=== PATIENT | female | born 1945 | race Caucasian/White ===

== ENCOUNTER 2017-09-17 15:06 | Observation (INO) | payer OTHER ==
[~2017-09-17] VITALS: Ht 167.6 cm; Wt 60.0 kg
[~2017-09-17 15:06] MED LIST: TAB-TAB PO
[2017-09-17 15:16] VITALS: BP 141/81; PULSE 102; RESP 18; TEMP 98; O2SAT 98
[2017-09-17] MEDS ORDERED: SODIUM CHLOR 0.9% 1000 ML INJ 1,000 ML IV SCH (15:35)
[2017-09-17] MEDS ORDERED: MORPHINE SULFATE 4 MG/ML INJ IV PUSH ONE (15:45)
[2017-09-17] MEDS ORDERED: SODIUM CHLORIDE 0.9% FLUSH 10 ML FLUSH IV FLUSH PRN ×2 (15:45→20:15)
--- NOTE | 2017-09-17 15:46 | PD ---
HPI Chief Complaint: Hip Injury Time Seen by Provider: 15:24 Travel History International Travel<30 days: No Contact w/Intl Traveler<30days: No Traveled to known affect area: No History of Present Illness HPI Patient is a well-appearing 72-year-old female presents to the emergency room complaints of b/l hip pain. Patient reports that she is healthy and has no medical problems and does not take any anticoagulants,. Reports that she was drinking heavily with her neighbors last night and fell backwards onto concrete landing onto her buttocks and left hip. Patient denies any trauma to the head or neck, patient denies any loss of consciousness. Reports that her neighbors and her helped her into the house, patient reports that she has not been able to get out of bed since last night. Patient reports that she has not been able to ambulate due to bilateral hip pain. Denies headache or dizziness, denies any neck pain, denies any chest pain, denies any abdominal pain. PFSH Past Medical History Cancer: No Cardiovascular Problems: No Chemotherapy: No Diabetes: No Endocrine: No Gastrointestinal Disorders: No Genitourinary: Yes (BLADDER PROLAPSE) Hepatitis: No Hiatal Hernia: No Hypertension: No Immune Disorder: No Implanted Vascular Access Dvce: No Medical other: No Musculoskeletal: No Neurologic: No Psychiatric: No Reproductive: Yes (D.N.C's) Respiratory: No Radiation Therapy: No Thyroid Disease: No Past Surgical History Abdominal Surgery: No AICD: No Body Medical Devices: BREAST AUGMENTATION Cardiac Surgery: No Ear Surgery: No Endocrine Surgery: No Eye Surgery: No Genitourinary Surgery: No Gynecologic Surgery: Yes (D.N.C'S) Joint Replacement: No Neurologic Surgery: No Oral Surgery: No Pacemaker: No Thoracic Surgery: No Other Surgery: Yes (D.N.C's) Social History Alcohol Use: No Tobacco Use: No Substance Use: No Allergies-Medications (Allergen,Severity, Reaction): Coded Allergies: No Known Allergies (Unverified , 06/19/12) Reported Meds & Prescriptions Reported Meds & Active Scripts Active Reported Multivitamin (Multivitamins) 1 Tab Tab 1 Tab PO DAILY Review of Systems General / Constitutional: No: Fever Eyes: No: Visual changes HENT: No: Headaches Cardiovascular: No: Chest Pain or Discomfort Respiratory: No: Shortness of Breath Gastrointestinal: No: Abdominal Pain Genitourinary: No: Dysuria Musculoskeletal: Positive: Pain (b/l hip pain) Skin: No Rash Neurologic: No: Weakness Psychiatric: No: Depression Endocrine: No: Polydipsia Hematologic/Lymphatic: No: Easy Bruising Physical Exam Narrative GENERAL: moderate distress SKIN: Focused skin assessment warm/dry. HEAD: Atraumatic. Normocephalic. EYES: Pupils equal and round. No scleral icterus. No injection or drainage. ENT: No nasal bleeding or discharge. Mucous membranes pink and moist. NECK: Trachea midline. No JVD. CARDIOVASCULAR: Regular rate and rhythm. No murmur appreciated. RESPIRATORY: No accessory muscle use. Clear to auscultation. Breath sounds equal bilaterally. GASTROINTESTINAL: Abdomen soft, non-tender, nondistended. Hepatic and splenic margins not palpable. MUSCULOSKELETAL: Patient with pain with range of motion to the left hip as well as right hip, on her left hip, she does have a bruise to her left lateral thigh , patient with no midline cervical, thoracic or lumbar tenderness, she does have been a bruise to her left elbow -she does have good range of motion to her elbow, normal range of motion to left shoulder and left wrist as well as right upper extremity NEUROLOGICAL: Awake and alert. No obvious cranial nerve deficits. Motor grossly within normal limits. Normal speech. PSYCHIATRIC: Appropriate mood and affect; insight and judgment normal. Data Data Last Documented VS Vital Signs Date Time Temp Pulse Resp B/P (MAP) Pulse Ox O2 Delivery O2 Flow Rate FiO2 09/17/17 16:41 97 18 200/94 (129) 97 09/17/17 15:47 Room Air 09/17/17 15:16 98.0 Orders Orders Hip, Uni(Ap&Lat) W Ap Pelvis (09/17/17 ) Hip, Uni(Ap&Lat) Wo Ap Pelvis (09/17/17 ) Basic Metabolic Panel (Bmp) (09/17/17 15:35) Complete Blood Count With Diff (09/17/17 15:35) Prothrombin Time / Inr (Pt) (09/17/17 15:35) Act Partial Throm Time (Ptt) (09/17/17 15:35) Iv Access Insert/Monitor (09/17/17 15:35) Ecg Monitoring (09/17/17 15:35) Oximetry (09/17/17 15:35) Morphine Inj (Morphine Inj) (09/17/17 15:45) Sodium Chlor 0.9% 1000 Ml Inj (Ns 1000 M (09/17/17 15:35) Sodium Chloride 0.9% Flush (Ns Flush) (09/17/17 15:45) Elbow, Complete (4 Vws) (09/17/17 ) Labs Laboratory Tests Test 09/17/17 15:45 White Blood Count 10.4 TH/MM3 Red Blood Count 4.41 MIL/MM3 Hemoglobin 14.5 GM/DL Hematocrit 43.2 % Mean Corpuscular Volume 97.9 FL Mean Corpuscular Hemoglobin 32.9 PG Mean Corpuscular Hemoglobin Concent 33.6 % Red Cell Distribution Width 13.5 % Platelet Count 328 TH/MM3 Mean Platelet Volume 8.3 FL Neutrophils (%) (Auto) 74.3 % Lymphocytes (%) (Auto) 10.8 % Monocytes (%) (Auto) 14.4 % Eosinophils (%) (Auto) 0.1 % Basophils (%) (Auto) 0.4 % Neutrophils # (Auto) 7.7 TH/MM3 Lymphocytes # (Auto) 1.1 TH/MM3 Monocytes # (Auto) 1.5 TH/MM3 Eosinophils # (Auto) 0.0 TH/MM3 Basophils # (Auto) 0.0 TH/MM3 CBC Comment DIFF FINAL Differential Comment Prothrombin Time 10.6 SEC Prothromb Time International Ratio 1.0 RATIO Activated Partial Thromboplast Time 25.4 SEC Blood Urea Nitrogen 8 MG/DL Creatinine 0.52 MG/DL Random Glucose 108 MG/DL Calcium Level 9.3 MG/DL Sodium Level 140 MEQ/L Potassium Level 3.6 MEQ/L Chloride Level 105 MEQ/L Carbon Dioxide Level 22.2 MEQ/L Anion Gap 13 MEQ/L Estimat Glomerular Filtration Rate 117 ML/MIN MDM Medical Decision Making Medical Screen Exam Complete: Yes Emergency Medical Condition: Yes Medical Record Reviewed: Yes Interpretation(s) Vital Signs Date Time Temp Pulse Resp B/P (MAP) Pulse Ox O2 Delivery O2 Flow Rate FiO2 09/17/17 15:16 98.0 102 18 141/81 (101) 98 Differential Diagnosis Pelvic fracture, hip fractures Narrative Course During the course of the patients emergency department visit, the patients history, examination, and differential diagnosis were reviewed with the patient. The patient was placed on a electronic device monitor with oximetry and frequent blood pressure monitoring. The patient had an IV access obtained and blood work sent for analysis. The patient was initially provided IV morphine and IVF The patients laboratory studies were reviewed and remarkable for Laboratory Tests Test 09/17/17 15:45 White Blood Count 10.4 TH/MM3 (4.0-11.0) Red Blood Count 4.41 MIL/MM3 (4.00-5.30) Hemoglobin 14.5 GM/DL (11.6-15.3) Hematocrit 43.2 % (35.0-46.0) Mean Corpuscular Volume 97.9 FL (80.0-100.0) Mean Corpuscular Hemoglobin 32.9 PG (27.0-34.0) Mean Corpuscular Hemoglobin Concent 33.6 % (32.0-36.0) Red Cell Distribution Width 13.5 % (11.6-17.2) Platelet Count 328 TH/MM3 (150-450) Mean Platelet Volume 8.3 FL (7.0-11.0) Neutrophils (%) (Auto) 74.3 % (16.0-70.0) Lymphocytes (%) (Auto) 10.8 % (9.0-44.0) Monocytes (%) (Auto) 14.4 % (0.0-8.0) Eosinophils (%) (Auto) 0.1 % (0.0-4.0) Basophils (%) (Auto) 0.4 % (0.0-2.0) Neutrophils # (Auto) 7.7 TH/MM3 (1.8-7.7) Lymphocytes # (Auto) 1.1 TH/MM3 (1.0-4.8) Monocytes # (Auto) 1.5 TH/MM3 (0-0.9) Eosinophils # (Auto) 0.0 TH/MM3 (0-0.4) Basophils # (Auto) 0.0 TH/MM3 (0-0.2) CBC Comment DIFF FINAL Differential Comment Prothrombin Time 10.6 SEC (9.8-11.6) Prothromb Time International Ratio 1.0 RATIO Activated Partial Thromboplast Time 25.4 SEC (24.3-30.1) Blood Urea Nitrogen 8 MG/DL (7-18) Creatinine 0.52 MG/DL (0.50-1.00) Random Glucose 108 MG/DL (74-106) Calcium Level 9.3 MG/DL (8.5-10.1) Sodium Level 140 MEQ/L (136-145) Potassium Level 3.6 MEQ/L (3.5-5.1) Chloride Level 105 MEQ/L (98-107) Carbon Dioxide Level 22.2 MEQ/L (21.0-32.0) Anion Gap 13 MEQ/L (5-15) Estimat Glomerular Filtration Rate 117 ML/MIN (>89) Radiology studies were reviewed and remarkable: pending xrays signed out to care of Dr. Wheeler at change of shift Minnie Baltazar DO Sep 17, 2017 15:46
[2017-09-17 15:47] VITALS: BP 177/87; PULSE 95; RESP 20; O2SAT 99
[2017-09-17 16:11] LABS: AUTOMATED NEUTROPHIL # 7.7 TH/MM3 (1.8-7.7); BASOPHIL % 0.4 % (0.0-2.0); EOSINOPHIL % 0.1 % (0.0-4.0); HEMATOCRIT 43.2 % (35.0-46.0); HEMOGLOBIN 14.5 GM/DL (11.6-15.3); LYMPH % 10.8 % (9.0-44.0); LYMPHOCYTE # 1.1 TH/MM3 (1.0-4.8); MEAN CELL VOLUME 97.9 FL (80.0-100.0); MEAN CORPUSCULAR HEMOGLOBIN 32.9 PG (27.0-34.0); MEAN CORPUSCULAR HGB CONC 33.6 % (32.0-36.0); MEAN PLATELET VOLUME 8.3 FL (7.0-11.0); MONO % 14.4 % (0.0-8.0); MONOCYTE # 1.5 TH/MM3 (0-0.9); NEUT % 74.3 % (16.0-70.0); PLATELET COUNT 328 TH/MM3 (150-450); RED BLOOD COUNT 4.41 MIL/MM3 (4.00-5.30); RED CELL DISTRIBUTION WIDTH 13.5 % (11.6-17.2); WHITE BLOOD COUNT 10.4 TH/MM3 (4.0-11.0)
[2017-09-17 16:22] LABS: BICARBONATE 22.2 MEQ/L (21.0-32.0); CALCIUM 9.3 MG/DL (8.5-10.1); CREATININE 0.52 MG/DL (0.50-1.00)
[2017-09-17 16:30] LABS: PROTHROMBIN TIME - PATIENT 10.6 SEC (9.8-11.6)
[2017-09-17 16:41] VITALS: BP 200/94; PULSE 97; RESP 18; O2SAT 97
--- NOTE | 2017-09-17 17:15 | PD ---
Physical Exam Narrative Received sign out to follow up with xrays. Please see previous team's note for further details. 72yo F here with c/o left hip pain s/p fall after drinking last night. Denies any head trauma or LOC. Pt has abrasion in left elbow but denies pain there. Said her has to help her up and she is unable to ambulate. Denies any focal weakness or numbness but unable to lift her legs on exam. +TTP left proximal femur. There is small ecchymoses in left femur. Distal pulses intact. Sensation intact. Labs reviewed, no leukocytosis. H/H normal. BMP unremarkable. Pt given morphine 4mg. Said it does not hurt if she does not move. Xray left elbow negative. Xray right hip showed fracture of medial right pubic bone. Xray left hip showed fracture of left superior and inferior pubic rami. Pt is unable to ambulate so will admit for observation for PT evaluation. Discussed with Dr. Myers and accepted to his service. Data Data Last Documented VS Vital Signs Date Time Temp Pulse Resp B/P (MAP) Pulse Ox O2 Delivery O2 Flow Rate FiO2 09/17/17 16:41 97 18 200/94 (129) 97 09/17/17 15:47 Room Air 09/17/17 15:16 98.0 Orders Orders Hip, Uni(Ap&Lat) W Ap Pelvis (09/17/17 ) Hip, Uni(Ap&Lat) Wo Ap Pelvis (09/17/17 ) Basic Metabolic Panel (Bmp) (09/17/17 15:35) Complete Blood Count With Diff (09/17/17 15:35) Prothrombin Time / Inr (Pt) (09/17/17 15:35) Act Partial Throm Time (Ptt) (09/17/17 15:35) Iv Access Insert/Monitor (09/17/17 15:35) Ecg Monitoring (09/17/17 15:35) Oximetry (09/17/17 15:35) Morphine Inj (Morphine Inj) (09/17/17 15:45) Sodium Chlor 0.9% 1000 Ml Inj (Ns 1000 M (09/17/17 15:35) Sodium Chloride 0.9% Flush (Ns Flush) (09/17/17 15:45) Elbow, Complete (4 Vws) (09/17/17 ) Admit Order (Ed Use Only) (09/17/17 18:24) Labs Laboratory Tests Test 09/17/17 15:45 White Blood Count 10.4 TH/MM3 Red Blood Count 4.41 MIL/MM3 Hemoglobin 14.5 GM/DL Hematocrit 43.2 % Mean Corpuscular Volume 97.9 FL Mean Corpuscular Hemoglobin 32.9 PG Mean Corpuscular Hemoglobin Concent 33.6 % Red Cell Distribution Width 13.5 % Platelet Count 328 TH/MM3 Mean Platelet Volume 8.3 FL Neutrophils (%) (Auto) 74.3 % Lymphocytes (%) (Auto) 10.8 % Monocytes (%) (Auto) 14.4 % Eosinophils (%) (Auto) 0.1 % Basophils (%) (Auto) 0.4 % Neutrophils # (Auto) 7.7 TH/MM3 Lymphocytes # (Auto) 1.1 TH/MM3 Monocytes # (Auto) 1.5 TH/MM3 Eosinophils # (Auto) 0.0 TH/MM3 Basophils # (Auto) 0.0 TH/MM3 CBC Comment DIFF FINAL Differential Comment Prothrombin Time 10.6 SEC Prothromb Time International Ratio 1.0 RATIO Activated Partial Thromboplast Time 25.4 SEC Blood Urea Nitrogen 8 MG/DL Creatinine 0.52 MG/DL Random Glucose 108 MG/DL Calcium Level 9.3 MG/DL Sodium Level 140 MEQ/L Potassium Level 3.6 MEQ/L Chloride Level 105 MEQ/L Carbon Dioxide Level 22.2 MEQ/L Anion Gap 13 MEQ/L Estimat Glomerular Filtration Rate 117 ML/MIN MDM Supervised Visit with SCHUYLER: No Diagnosis Primary Impression: Pelvic fracture Qualified Codes: S32.810A - Multiple fractures of pelvis with stable disruption of pelvic ring, initial encounter for closed fracture Admitting Information Admitting Physician Requests: Observation Skyla Wheeler DO Sep 17, 2017 17:15
--- NOTE | 2017-09-17 17:24 | RADRPT ---
EXAM DATE: 09/17/2017 5:20 PM EDT AGE/SEX: 72 years / Female INDICATIONS: Fracture. CLINICAL DATA: This is the patient's initial encounter. Patient reports that signs and symptoms have been present for 1 day and indicates a pain score of 9/10. MEDICAL/SURGICAL HISTORY: None. None. COMPARISON: No prior exams available for comparison. FINDINGS: There is fracturing of the superior lateral left pubic rami and the mid inferior left pubic rami. The re is also fracturing of the right medial pubic bone superiorly. The hip joints are normally aligned. The proximal femurs appear intact. The sacroiliac joints are intact. CONCLUSION: Fracturing of the left superior and inferior pubic rami. There is also fracture in the medial right p ubic bone. Electronically signed by: Ramirez Polanco MD 09/17/2017 5:23 PM EDT
--- NOTE | 2017-09-17 17:37 | RADRPT ---
EXAM DATE: 09/17/2017 5:18 PM EDT AGE/SEX: 72 years / Female INDICATIONS: Fracture. CLINICAL DATA: This is the patient's initial encounter. Patient reports that signs and symptoms have been present for 1 day and indicates a pain score of 0/10. MEDICAL/SURGICAL HISTORY: None. None. COMPARISON: No prior exams available for comparison. FINDINGS: Bony structures are intact and in normal alignment. Joints are intact without dislocation or signifi cant arthropathy. Osseous density is normal. Soft tissues are unremarkable. No radiopaque foreign bodies seen. CONCLUSION: Negative left elbow series. Electronically signed by: Ramirez Polanco MD 09/17/2017 5:35 PM EDT
--- NOTE | 2017-09-17 17:42 | RADRPT ---
EXAM DATE: 09/17/2017 5:21 PM EDT AGE/SEX: 72 years / Female INDICATIONS: Fracture. CLINICAL DATA: This is the patient's initial encounter. Patient reports that signs and symptoms have been present for 1 day and indicates a pain score of 8/10. MEDICAL/SURGICAL HISTORY: None. None. COMPARISON: [facility] – [place], HIP LEFT (AP&LAT 2/3VWS) W AP PELVIS, 09/17/2017. . FINDINGS: There appears to be fracturing through the superior aspect of the medial right pubic bone. The pubic rami appear intact. The right hip joint is aligned. CONCLUSION: Fracturing of the medial right pubic bone. Electronically signed by: Ramirez Polanco MD 09/17/2017 5:41 PM EDT
[2017-09-17 18:29] VITALS: BP 155/89; PULSE 95; RESP 21; O2SAT 94
[2017-09-17] MEDS ORDERED: ACETAMINOPHEN 325 MG TAB PO PRN (20:15)
[2017-09-17] MEDS ORDERED: MORPHINE SULFATE 4 MG/ML INJ IV PUSH PRN (20:15)
[2017-09-17] MEDS ORDERED: NALOXONE HCL 0.4 MG/ML AMP IV PUSH PRN (20:15)
[2017-09-17] MEDS ORDERED: LORazepam 1 MG TAB PO PRN (21:15)
[2017-09-17] MEDS ORDERED: FLUMAZENIL 0.5 MG/5 ML VIAL IV PUSH PRN (21:15)
[2017-09-17] MEDS ORDERED: LORazepam 2 MG TAB PO PRN (21:15)
[2017-09-17] MEDS ORDERED: LORazepam 2 MG/ML VIAL IV PUSH PRN ×4 (21:15)
--- NOTE | 2017-09-17 21:19 | HHI.HP ---
[facility] Service [facility] Primary Care Physician Abdullahi Telles MD Admission Diagnosis Pelvic fracture Diagnoses: Travel History International Travel<30 Days: No Contact w/Intl Traveler <30 Da: No Traveled to Known Affected Are: No History of Present Illness 72-year-old female reports that she was "partying with neighbors" last night when she fell backwards onto a concrete driveway onto her buttock and back. She denies any head trauma or loss of consciousness. Denies any other injuries. She reports she is unable to ambulate secondary to pelvic pain. The patient drinks approximately 10 shots of alcohol daily. She denies any chest pain or shortness of breath. No abdominal pain. No nausea/vomiting/diarrhea. No lateralizing signs/symptoms. No fever/chills Review of Systems Except as stated in HPI: all other systems reviewed are Neg Past Family Social History Past Medical History None Past Surgical History Bladder prolapse D&C Tonsillectomy Reported Medications Reported Meds & Active Scripts Active Reported Multivitamin (Multivitamins) 1 Tab Tab 1 Tab PO DAILY Allergies: Coded Allergies: No Known Allergies (Unverified , 06/19/12) Family History Negative for CAD/DM Social History Negative for tobacco and illicit drugs. Reports drinking approximately 10 shots of alcohol daily Physical Exam Vital Signs Vital Signs Date Time Temp Pulse Resp B/P (MAP) Pulse Ox O2 Delivery O2 Flow Rate FiO2 09/17/17 20:31 09/17/17 18:29 95 21 155/89 (111) 94 09/17/17 16:41 97 18 200/94 (129) 97 09/17/17 15:47 95 20 177/87 (117) 99 Room Air 09/17/17 15:16 98.0 102 18 141/81 (101) 98 Physical Exam GENERAL: female lying in bed SKIN: No rashes, ecchymoses or lesions. Cool and dry. HEAD: Atraumatic. Normocephalic. No temporal or scalp tenderness. EYES: Pupils equal round and reactive. Extraocular motions intact. No scleral icterus. No injection or drainage. ENT: Nose without bleeding, purulent drainage or septal hematoma. Throat without erythema, tonsillar hypertrophy or exudate. Uvula midline. Airway patent. NECK: Trachea midline. No JVD or lymphadenopathy. Supple, nontender, no meningeal signs. CARDIOVASCULAR: Regular rate and rhythm without murmurs, gallops, or rubs. RESPIRATORY: Clear to auscultation. Breath sounds equal bilaterally. No wheezes , rales, or rhonchi. GASTROINTESTINAL: Abdomen soft, non-tender, nondistended. No hepato-splenomegaly , or palpable masses. No guarding. MUSCULOSKELETAL: Bilateral lower extremities neurovascularly intact. NEUROLOGICAL: Awake and alert. Cranial nerves II through XII intact. Motor and sensory grossly within normal limits. Normal speech. Laboratory Laboratory Tests Test 09/17/17 15:45 White Blood Count 10.4 Red Blood Count 4.41 Hemoglobin 14.5 Hematocrit 43.2 Mean Corpuscular Volume 97.9 Mean Corpuscular Hemoglobin 32.9 Mean Corpuscular Hemoglobin Concent 33.6 Red Cell Distribution Width 13.5 Platelet Count 328 Mean Platelet Volume 8.3 Neutrophils (%) (Auto) 74.3 Lymphocytes (%) (Auto) 10.8 Monocytes (%) (Auto) 14.4 Eosinophils (%) (Auto) 0.1 Basophils (%) (Auto) 0.4 Neutrophils # (Auto) 7.7 Lymphocytes # (Auto) 1.1 Monocytes # (Auto) 1.5 Eosinophils # (Auto) 0.0 Basophils # (Auto) 0.0 CBC Comment DIFF FINAL Differential Comment Prothrombin Time 10.6 Prothromb Time International Ratio 1.0 Activated Partial Thromboplast Time 25.4 Blood Urea Nitrogen 8 Creatinine 0.52 Random Glucose 108 Calcium Level 9.3 Sodium Level 140 Potassium Level 3.6 Chloride Level 105 Carbon Dioxide Level 22.2 Anion Gap 13 Estimat Glomerular Filtration Rate 117 Result Diagram: 09/17/17 1545 09/17/17 1545 Caprini VTE Risk Assessment Caprini VTE Risk Assessment: Mod/High Risk (score >= 2) Caprini Risk Assessment Model Point Value = 1 Point Value = 2 Point Value = 3 Point Value = 5 Age 41-60 Minor surgery BMI > 25 kg/m2 Swollen legs Varicose veins or History of unexplained or recurrent spontaneous Oral contraceptives or hormone replacement Sepsis (< 1 month) Serious lung disease, including pneumonia (< 1 month) Abnormal pulmonary function Acute myocardial infarction Congestive heart failure (< 1 month) History of inflammatory bowel disease Medical patient at bed rest Age 61-74 Arthroscopic surgery Major open surgery (> 45 min) Laparoscopic surgery (> 45 min) Malignancy Confined to bed (> 72 hours) Immobilizing plaster cast Central venous access Age >= 75 History of VTE Family history of VTE Factor V Leiden Prothrombin [id number] Lupus anticoagulant Anticardiolipin antibodies Elevated serum homocysteine Heparin-induced thrombocytopenia Other congenital or acquired thrombophilia Stroke (< 1 month) Elective arthroplasty Hip, pelvis, or leg fracture Acute spinal cord injury (< 1 month) Prophylaxis Regimen Total Risk Factor Score Risk Level Prophylaxis Regimen 0-1 Low Early ambulation 2 Moderate Order ONE of the following: *Sequential Compression Device (SCD) *Heparin 5000 units SQ BID 3-4 Higher Order ONE of the following medications: *Heparin 5000 units SQ TID *Enoxaparin/Lovenox 40 mg SQ daily (WT < 150 kg, CrCl > 30 mL/min) *Enoxaparin/Lovenox 30 mg SQ daily (WT < 150 kg, CrCl > 10-29 mL/min) *Enoxaparin/Lovenox 30 mg SQ BID (WT < 150 kg, CrCl > 30 mL/min) AND/OR *Sequential Compression Device (SCD) 5 or more Highest Order ONE of the following medications: *Heparin 5000 units SQ TID (Preferred with Epidurals) *Enoxaparin/Lovenox 40 mg SQ daily (WT < 150 kg, CrCl > 30 mL/min) *Enoxaparin/Lovenox 30 mg SQ daily (WT < 150 kg, CrCl > 10-29 mL/min) *Enoxaparin/Lovenox 30 mg SQ BID (WT < 150 kg, CrCl > 30 mL/min) AND *Sequential Compression Device (SCD) Assessment and Plan Assessment and Plan Assessment/plan: 1. Rami/pubic bone fracture Hip and pelvis x-ray significant for fracturing of the left superior and inferior pubic rami and fracture in the medial right pubic bone Patient reports her pain is uncontrolled and she is unable to ambulate Orthopedic surgery consulted, appreciate recommendations Physical therapy consulted Morphine for pain 2. Alcohol abuse Thiamine/folate/multivitamin CITX protocol Monitor for signs of withdrawal FEN Heart healthy diet Electrolytes: Monitor and replete as needed Heparin Minnie Rasheed MD Sep 17, 2017:19
[2017-09-17 21:30] VITALS: BP 146/81; PULSE 94; RESP 16; TEMP 98.9; O2SAT 97
[2017-09-17] MEDS: SODIUM CHLORIDE 0.9% FLUSH 10 ML FLUSH IV FLUSH SCH (22:13)
[2017-09-17 23:40] VITALS: BP 132/76; PULSE 93; RESP 16; TEMP 98.9; O2SAT 94
[2017-09-18 03:45] VITALS: BP 135/69; PULSE 91; RESP 16; TEMP 98.3; O2SAT 95
[2017-09-18 05:52] LABS: BASOPHIL % 0.4 % (0.0-2.0); EOSINOPHIL # 0.1 TH/MM3 (0-0.4); EOSINOPHIL % 0.7 % (0.0-4.0); HEMATOCRIT 40.8 % (35.0-46.0); HEMOGLOBIN 13.7 GM/DL (11.6-15.3); LYMPHOCYTE # 1.1 TH/MM3 (1.0-4.8); MEAN CELL VOLUME 96.7 FL (80.0-100.0); MEAN CORPUSCULAR HEMOGLOBIN 32.3 PG (27.0-34.0); MEAN CORPUSCULAR HGB CONC 33.4 % (32.0-36.0); MEAN PLATELET VOLUME 8.4 FL (7.0-11.0); MONOCYTE # 1.7 TH/MM3 (0-0.9); NEUT % 75.9 % (16.0-70.0); PLATELET COUNT 325 TH/MM3 (150-450); RED BLOOD COUNT 4.22 MIL/MM3 (4.00-5.30); RED CELL DISTRIBUTION WIDTH 13.7 % (11.6-17.2); WHITE BLOOD COUNT 11.8 TH/MM3 (4.0-11.0)
[2017-09-18 06:15] LABS: BICARBONATE 23.4 MEQ/L (21.0-32.0); CALCIUM 8.6 MG/DL (8.5-10.1); CREATININE 0.45 MG/DL (0.50-1.00)
[2017-09-18 08:00] VITALS: BP 141/79; PULSE 88; RESP 16; TEMP 98.3; O2SAT 95
[2017-09-18] MEDS: THIAMINE HCL 100 MG TAB PO SCH (09:52)
[2017-09-18] MEDS: FOLIC ACID 1 MG TAB PO SCH (09:52)
[2017-09-18] MEDS: MULTIVITAMINS/MINERALS THERAPEUTIC TAB PO SCH (09:52)
[2017-09-18] MEDS: SODIUM CHLORIDE 0.9% FLUSH 10 ML FLUSH IV FLUSH SCH ×2 (09:52→20:15)
[2017-09-18] MEDS: HEPARIN SODIUM - SQ 10,000 UNITS/ML VIAL SQ SCH ×2 (09:52→20:15)
[2017-09-18] MEDS: ACETAMINOPHEN/HYDROcodone 325 MG/5 MG TAB PO PRN ×2 (12:07→18:02)
--- NOTE | 2017-09-18 12:34 | HHI.PR ---
Subjective Remarks Patient herself says she still in pain, hurts a lot when she goes from the bed to the wheelchair. Denies having any palpitations or chest pain surrounding the incident that precipitated her presentation. Objective Vital Signs Date Time Temp Pulse Resp B/P (MAP) Pulse Ox O2 Delivery O2 Flow Rate FiO2 09/18/17 08:00 98.3 88 16 141/79 (99) 95 09/18/17 03:45 98.3 91 16 135/69 (91) 95 09/17/17 23:40 98.9 93 16 132/76 (94) 94 09/17/17 23:00 18 09/17/17 21:30 98.9 94 16 146/81 (102) 97 09/17/17 20:31 09/17/17 18:29 95 21 155/89 (111) 94 09/17/17 16:41 97 18 200/94 (129) 97 09/17/17 15:47 95 20 177/87 (117) 99 Room Air 09/17/17 15:16 98.0 102 18 141/81 (101) 98 I/O 09/17/17 09/17/17 09/17/17 09/18/17 09/18/17 09/18/17 07:00 15:00 23:00 07:00 15:00 23:00 Intake Total 1000 ml Output Total 150 ml Balance -150 ml 1000 ml Intake IV Total 1000 ml Output Urine Total 150 ml # Voids 2 Result Diagram: 09/18/17 0453 09/18/17 0453 Objective Remarks Is able to abduct both of her hips on her own but only does so with partial range of motion secondary to pain Lying in bed, awake and alert, no acute distress A/P Assessment and Plan Right-sided superior and inferior pubic rami fractures as well as left medial pubic bone fracture-nonoperative from what I gather. Patient will need pain medication only to be discharged to rehab. Derek Moran MD Sep 18, 2017 12:34
[2017-09-18 13:00] VITALS: BP 126/77; PULSE 99; RESP 16; TEMP 97.6; O2SAT 93
--- NOTE | 2017-09-18 14:13 | HHI.DCPOC ---
Discharge Care Plan Diagnosis: (1) Fracture of multiple pubic rami (2) Pelvic fracture Goals to Promote Your Health * To prevent worsening of your condition and complications * To maintain your health at the optimal level Directions to Meet Your Goals Take your medications as prescribed Follow your dietary instruction Follow activity as directed Keep your appointments as scheduled Take your immunizations and boosters as scheduled If your symptoms worsen call your PCP, if no PCP go to Urgent Care Center or Emergency Room Smoking is Dangerous to Your Health. Avoid second hand smoke Call the 24-hour hour crisis hotline for domestic abuse at Derek Moran MD Sep 18, 2017 14:13
[2017-09-18] MEDS ORDERED: HYDR-3516 PO (14:14)
--- NOTE | 2017-09-18 14:15 | PD.CONS ---
HPI Service Orthopedic Surgeons Consult Requested By Dr. Rasheed Reason for Consult Fracture of the pelvis Primary Care Physician Abdullahi Telles MD Admission Diagnosis Pelvic fracture Diagnoses: Chief Complaint: Pelvic pain and inability to ambulate History of Present Illness This patient is a 72-year-old female who fell yesterday on concrete in her front yard. She had been drinking. There was no loss of consciousness. The patient was unable to ambulate. She is brought by [facility] to [facility] and was found to have evidence of a pelvis fracture. I have been asked to see her in consultation regarding the same Review of Systems Constitutional: DENIES: Diaphoretic episodes, Fatigue, Fever, Weight gain, Weight loss, Chills, Dizziness, Change in appetite, Night Sweats Endocrine: DENIES: Abnorml menstrual pattern, Heat/cold intolerance, Polydipsia , Polyuria, Polyphagia Eyes: DENIES: Blurred vision, Diplopia, Eye inflammation, Eye pain, Vision loss , Photosensitivity, Double Vision Ears, nose, mouth, throat: DENIES: Tinnitus, Hearing loss, Vertigo, Nasal discharge, Oral lesions, Throat pain, Hoarseness, Ear Pain, Running Nose, Epistaxis, Sinus Pain, Toothache, Odynophagia Respiratory: DENIES: Apneas, Cough, Snoring, Wheezing, Hemoptysis, Sputum production, Shortness of breath Cardiovascular: DENIES: Chest pain, Palpitations, Syncope, Dyspnea on Exertion , PND, Lower Extremity Edema, Orthopnea, Claudication Gastrointestinal: DENIES: Abdominal pain, Black stools, Bloody stools, Constipation, Diarrhea, Nausea, Vomiting, Difficulty Swallowing, Anorexia Genitourinary: DENIES: Abnormal vaginal bleeding, Dysmenorrhea, Dyspareunia, Sexual dysfunction, Urinary frequency, Urinary incontinence, Urgency, Hematuria , Dysuria, Nocturia, Vaginal discharge Musculoskeletal: COMPLAINS OF: Joint pain, Stiffness Integumentary: DENIES: Abnormal pigmentation, Pruritus, Rash, Nail changes, Breast masses, Breast skin changes, Nipple discharge Hematologic/lymphatic: DENIES: Bruising, Lymphadenopathy Immunologic/allergic: DENIES: Eczema, Urticaria Neurologic: COMPLAINS OF: Abnormal gait Psychiatric: DENIES: Anxiety, Confusion, Mood changes, Depression, Hallucinations, Agitation, Suicidal Ideation, Homicidal Ideation, Delusions Past Family Social History Past Medical History None Past Surgical History Bladder prolapse D&C Tonsillectomy Allergies: Coded Allergies: No Known Allergies (Unverified , 06/19/12) Active Ordered Medications Current Medications Medications (Trade) Dose Ordered Sig/Lorraine Route Start Time Stop Time Status Last Admin (NS Flush) 2 ml UNSCH PRN IV FLUSH 09/17/17 15:45 09/17/17 15:49 (NS Flush) 2 ml UNSCH PRN IV FLUSH 09/17/17 20:15 (NS Flush) 2 ml BID IV FLUSH 09/17/17 21:00 09/18/17 09:52 (Tylenol) 650 mg Q4H PRN PO 09/17/17 20:15 (Narcan Inj) 0.4 mg UNSCH PRN IV PUSH 09/17/17 20:15 (Morphine Inj) 2 mg Q3H PRN IV PUSH 09/17/17 20:15 09/17/17 22:13 (Folate) 1 mg DAILY PO 09/18/17 09:00 09/23/17 08:59 09/18/17 09:52 (Vitamin B1) 100 mg DAILY PO 09/18/17 09:00 09/18/17 09:52 (Theragran M Tab) 1 tab DAILY PO 09/18/17 09:00 09/23/17 08:59 09/18/17 09:52 (Romazicon Inj) 0.2 mg Q1M PRN IV PUSH 09/17/17 21:15 (Ativan) 1 mg Q4H PRN PO 09/17/17 21:15 (Ativan Inj) 1 mg Q4H PRN IV PUSH 09/17/17 21:15 (Ativan) 2 mg Q2H PRN PO 09/17/17 21:15 (Ativan Inj) 2 mg Q2H PRN IV PUSH 09/17/17 21:15 (Ativan Inj) 2 mg Q1H PRN IV PUSH 09/17/17 21:15 (Ativan Inj) 2 mg Q15M PRN IV PUSH 09/17/17 21:15 (Heparin Inj) 5,000 units Q12HR SQ 6/21/18 09:00 09/18/17 09:52 (Reese 5-325 Mg) 1 tab Q6H PRN PO 09/18/17 10:45 09/18/17 12:07 Reported Meds & Active Scripts Active Reported Multivitamin (Multivitamins) 1 Tab Tab 1 Tab PO DAILY Family History Negative for CAD/DM Social History Negative for tobacco and illicit drugs. Reports drinking approximately 10 shots of alcohol daily Physical Exam Vital Signs Vital Signs Date Time Temp Pulse Resp B/P (MAP) Pulse Ox O2 Delivery O2 Flow Rate FiO2 09/18/17 13:00 97.6 99 16 126/77 (93) 93 09/18/17 08:00 98.3 88 16 141/79 (99) 95 09/18/17 03:45 98.3 91 16 135/69 (91) 95 09/17/17 23:40 98.9 93 16 132/76 (94) 94 09/17/17 23:00 18 09/17/17 21:30 98.9 94 16 146/81 (102) 97 09/17/17 20:31 09/17/17 18:29 95 21 155/89 (111) 94 09/17/17 16:41 97 18 200/94 (129) 97 09/17/17 15:47 95 20 177/87 (117) 99 Room Air 09/17/17 15:16 98.0 102 18 141/81 (101) 98 Physical Exam HEENT: Normocephalic atraumatic pupils equal round reactive. NECK: Supple. No abnormal masses. Full range of motion. CHEST: Clear to auscultation with no rales or rhonchi's or wheezes. HEART: Regular rate and rhythm. No murmurs. ABDOMEN: Soft, nontender, no masses. Normal active bowel sounds. GENITOURINARY: Deferred MUSCULOSKELETAL there is moderate tenderness of the anterior ramus left and right. Mild pain with range of motion of the hip. Sensation distally is normal. Dorsalis pedis 1+. No tenderness about either knee or ankle Laboratory Laboratory Tests Test 09/17/17 15:45 09/18/17 04:53 White Blood Count 10.4 11.8 Red Blood Count 4.41 4.22 Hemoglobin 14.5 13.7 Hematocrit 43.2 40.8 Mean Corpuscular Volume 97.9 96.7 Mean Corpuscular Hemoglobin 32.9 32.3 Mean Corpuscular Hemoglobin Concent 33.6 33.4 Red Cell Distribution Width 13.5 13.7 Platelet Count 328 325 Mean Platelet Volume 8.3 8.4 Neutrophils (%) (Auto) 74.3 75.9 Lymphocytes (%) (Auto) 10.8 9.0 Monocytes (%) (Auto) 14.4 14.0 Eosinophils (%) (Auto) 0.1 0.7 Basophils (%) (Auto) 0.4 0.4 Neutrophils # (Auto) 7.7 9.0 Lymphocytes # (Auto) 1.1 1.1 Monocytes # (Auto) 1.5 1.7 Eosinophils # (Auto) 0.0 0.1 Basophils # (Auto) 0.0 0.0 CBC Comment DIFF FINAL DIFF FINAL Differential Comment Prothrombin Time 10.6 Prothromb Time International Ratio 1.0 Activated Partial Thromboplast Time 25.4 Blood Urea Nitrogen 8 7 Creatinine 0.52 0.45 Random Glucose 108 105 Calcium Level 9.3 8.6 Sodium Level 140 141 Potassium Level 3.6 3.5 Chloride Level 105 105 Carbon Dioxide Level 22.2 23.4 Anion Gap 13 13 Estimat Glomerular Filtration Rate 117 138 Result Diagram: 09/18/17 0453 09/18/17 0453 Imaging X-ray of the pelvis and review of the radiologist interpretation shows evidence of a nondisplaced anterior left ramus fracture, anterior pubic symphysis fracture on the right and a posterior ischial fracture without displacement Assessment & Plan Assessment and Plan Fracture bilateral hemipelvis. PLAN: Nonsurgical treatment. Weightbearing as tolerated. Probably will be bed to chair or bed to wheelchair for a period of time. Follow-up in approximately 3-4 weeks. On return, x-ray of the pelvis Arun Matute MD Sep 18, 2017 14:15
[2017-09-18 17:40] VITALS: BP 132/81; PULSE 99; RESP 16; TEMP 98.1; O2SAT 95
[2017-09-18] MEDS: DOCUSATE SODIUM 50 MG/SENNA 8.6 MG TAB PO SCH (20:15)
[2017-09-18 20:24] VITALS: BP 119/73; PULSE 105; RESP 16; TEMP 97.9; O2SAT 92
[2017-09-19] VITALS (7 sets, daily range): BP systolic 118–136; BP diastolic 70–80; PULSE 70–106; RESP 16–20; TEMP 97.7–98.6; O2SAT 92–98
[2017-09-19] MEDS: MULTIVITAMINS/MINERALS THERAPEUTIC TAB PO SCH (08:12)
[2017-09-19] MEDS: FOLIC ACID 1 MG TAB PO SCH (08:12)
[2017-09-19] MEDS: THIAMINE HCL 100 MG TAB PO SCH (08:12)
[2017-09-19] MEDS: SODIUM CHLORIDE 0.9% FLUSH 10 ML FLUSH IV FLUSH SCH ×2 (08:12→20:32)
[2017-09-19] MEDS: DOCUSATE SODIUM 50 MG/SENNA 8.6 MG TAB PO SCH ×2 (08:12→20:31)
[2017-09-19] MEDS: HEPARIN SODIUM - SQ 10,000 UNITS/ML VIAL SQ SCH ×2 (08:13→20:31)
--- NOTE | 2017-09-19 08:22 | PD.ORT.PN ---
Subjective Subjective Remarks Doing fine. Sitting in bed. Difficulty with transfers. Awaiting discharge to SNF Objective Vitals Vital Signs Date Time Temp Pulse Resp B/P (MAP) Pulse Ox O2 Delivery O2 Flow Rate FiO2 09/19/17 08:11 98.2 70 20 128/78 (95) 98 09/19/17 04:58 98.4 90 18 128/72 (90) 96 09/19/17 01:29 98.1 95 16 136/71 (92) 95 09/18/17 20:24 97.9 105 16 119/73 (88) 92 09/18/17 19:02 18 09/18/17 17:40 98.1 99 16 132/81 (98) 95 09/18/17 13:00 97.6 99 16 126/77 (93) 93 I/O 09/18/17 09/18/17 09/18/17 09/19/17 09/19/17 09/19/17 07:00 15:00 23:00 07:00 15:00 23:00 Intake Total 1000 ml 240 ml Output Total 900 ml Balance 1000 ml -660 ml Intake Oral 240 ml IV Total 1000 ml Output Urine Total 900 ml # Bowel Movements 0 Result Diagram: 09/18/17 0453 09/18/17 0453 Objective Remarks Sitting in bed comfortably. Pelvic type discomfort to palpation. No other discomfort. Assessment & Plan Assessment and Plan Fracture bilateral hemipelvis. PLAN: Nonsurgical treatment. Weightbearing as tolerated. Probably will be bed to chair or bed to wheelchair for a period of time. Follow-up in approximately 3-4 weeks. On return, x-ray of the pelvis Recommend discontinue Guardado catheter Arun Matute MD Sep 19, 2017 08:22
[2017-09-19] MEDS: ACETAMINOPHEN/HYDROcodone 325 MG/5 MG TAB PO PRN ×2 (10:18→18:26)
[2017-09-20 03:32] VITALS: BP 130/84; PULSE 88; RESP 16; TEMP 97.9; O2SAT 95
[2017-09-20] MEDS: ACETAMINOPHEN/HYDROcodone 325 MG/5 MG TAB PO PRN ×3 (05:47→23:27)
[2017-09-20 07:36] VITALS: BP 132/80; PULSE 85; RESP 18; TEMP 97.9; O2SAT 96
--- NOTE | 2017-09-20 08:04 | HHI.PR ---
Subjective Remarks Pt seen and examined. AFVSS. No acute events overnight. Endorses some pain in her pubic region but overall okay and ready to be discharged once insurance authorizes SNF. No other complaints. Denies CP, SOB, abdominal pain, N/V. Objective Vital Signs Date Time Temp Pulse Resp B/P (MAP) Pulse Ox O2 Delivery O2 Flow Rate FiO2 09/20/17 07:36 97.9 85 18 132/80 (97) 96 09/20/17 03:32 97.9 88 16 130/84 (99) 95 09/19/17 23:47 97.7 90 16 134/80 (98) 97 09/19/17 19:48 98.0 106 16 132/79 (96) 92 09/19/17 19:26 18 09/19/17 16:13 98.2 101 20 118/70 (86) 96 09/19/17 12:29 98.6 102 18 124/80 (95) 96 09/19/17 08:11 98.2 70 20 128/78 (95) 98 I/O 09/19/17 09/19/17 09/19/17 09/20/17 09/20/17 09/20/17 07:00 15:00 23:00 07:00 15:00 23:00 Intake Total 360 ml Output Total 320 ml Balance 40 ml Intake Oral 360 ml Output Urine Total 320 ml Result Diagram: 09/18/1745209/18/17452 Objective Remarks GENERAL: WN, WD female resting in bed in NAD. SKIN: Warm and dry. HEENT: AT/NC. Pupils equal and round. MMM. NECK: Supple no tender LAD or JVD. HEART: RRR no m/r/g. LUNGS: CTAB without wheezes or crackles. ABDOMEN: +BS, soft, NT, ND. EXTREMITIES: No LE edema. NEURO: Awake and alert. Nonfocal. PSYCH: Appropriate mood and affect. A/P Assessment and Plan 72 YOWF EtOH abuse admitted on 09/17 after falling while intoxicated and sustaining a pelvic fracture. 1. L inferior and superior pubic rami and R medial pubic fractures - Orthopedic surgery consulted; nonoperative and WBAT. Appreciate recommendations - Pain control - PT recommending rehab - [place] and Morphine PRN 2. Alcohol abuse - Rally pack - CIWA protocol, not requiring Ativan - No signs of withdrawal DVT prophylaxis: Heparin Discharge Planning D/C to rehab today if insurance authorizes, CM assisting Zoe Turner MD Sep 20, 2017 08:04
[2017-09-20] MEDS: DOCUSATE SODIUM 50 MG/SENNA 8.6 MG TAB PO SCH ×2 (09:00→21:00)
[2017-09-20] MEDS: FOLIC ACID 1 MG TAB PO SCH (10:22)
[2017-09-20] MEDS: MULTIVITAMINS/MINERALS THERAPEUTIC TAB PO SCH (10:22)
[2017-09-20] MEDS: HEPARIN SODIUM - SQ 10,000 UNITS/ML VIAL SQ SCH ×2 (10:23→23:24)
[2017-09-20] MEDS: SODIUM CHLORIDE 0.9% FLUSH 10 ML FLUSH IV FLUSH SCH ×2 (10:23→23:24)
[2017-09-20] MEDS: THIAMINE HCL 100 MG TAB PO SCH (10:23)
[2017-09-20 11:29] VITALS: BP 130/84; PULSE 101; RESP 18; TEMP 97.6; O2SAT 95
[2017-09-20 15:20] VITALS: BP 130/80; PULSE 86; RESP 18; TEMP 97.7; O2SAT 95
[2017-09-20 20:42] VITALS: BP 137/74; PULSE 106; RESP 18; TEMP 98; O2SAT 94
[2017-09-20 23:36] VITALS: BP 135/81; PULSE 97; RESP 18; TEMP 98.1; TEMP 99; O2SAT 97
[2017-09-21 03:55] VITALS: BP 128/77; PULSE 90; RESP 18; TEMP 98.6; O2SAT 95
[2017-09-21 07:36] VITALS: BP 134/75; PULSE 93; RESP 18; TEMP 98.3; O2SAT 92
[2017-09-21] MEDS: FOLIC ACID 1 MG TAB PO SCH (08:46)
[2017-09-21] MEDS: SODIUM CHLORIDE 0.9% FLUSH 10 ML FLUSH IV FLUSH SCH (08:46)
[2017-09-21] MEDS: THIAMINE HCL 100 MG TAB PO SCH (08:46)
[2017-09-21] MEDS: MULTIVITAMINS/MINERALS THERAPEUTIC TAB PO SCH (08:46)
[2017-09-21] MEDS: DOCUSATE SODIUM 50 MG/SENNA 8.6 MG TAB PO SCH (08:46)
[2017-09-21] MEDS: HEPARIN SODIUM - SQ 10,000 UNITS/ML VIAL SQ SCH (08:47)
[2017-09-21 11:51] VITALS: BP 135/65; PULSE 93; RESP 18; TEMP 98.1; O2SAT 95
--- NOTE | 2017-09-21 11:59 | HHI.PR ---
Subjective Remarks Pt seen and examined. AFVSS. No acute events overnight. Endorses some pain in her pubic region but overall pain is well controlled and she feels ready to be discharged once insurance authorizes SNF. No other complaints. Guardado was taken out yesterday and patient has been voiding without issues. Denies CP, SOB, abdominal pain, N/V. Objective Vital Signs Date Time Temp Pulse Resp B/P (MAP) Pulse Ox O2 Delivery O2 Flow Rate FiO2 09/21/17 11:51 98.1 93 18 135/65 (88) 95 09/21/17 07:36 98.3 93 18 134/75 (94) 92 09/21/17 03:55 98.6 90 18 128/77 (94) 95 09/21/17 00:30 20 09/20/17 23:36 98.1 97 18 135/81 (99) 97 09/20/17 20:42 98.0 106 18 137/74 (95) 94 09/20/17 15:20 97.7 86 18 130/80 (97) 95 I/O 09/20/17 09/20/17 09/20/17 09/21/17 09/21/17 09/21/17 07:00 15:00 23:00 07:00 15:00 23:00 # Voids 3 2 5 # Bowel Movements 0 Result Diagram: 09/18/1745209/18/17452 Objective Remarks GENERAL: WN, WD female resting in bed in [facility]. SKIN: Warm and dry. HEENT: AT/NC. Pupils equal and round. MMM. NECK: Supple no tender LAD or JVD. HEART: RRR no m/r/g. LUNGS: CTAB without wheezes or crackles. ABDOMEN: +BS, soft, NT, ND. EXTREMITIES: No LE edema. NEURO: Awake and alert. Nonfocal. PSYCH: Appropriate mood and affect. A/P Assessment and Plan 72 YOWF EtOH abuse admitted on 09/17 after falling while intoxicated and sustaining a pelvic fracture. 1. L inferior and superior pubic rami and R medial pubic fractures - Orthopedic surgery consulted; nonoperative and WBAT. Appreciate recommendations - Pain control - PT recommending rehab - [place] and Morphine PRN 2. Alcohol abuse - Rally pack - CIWA protocol, not requiring Ativan - No signs of withdrawal DVT prophylaxis: Heparin Discharge Planning D/C to rehab today if insurance authorizes, CM assisting Zoe Turner MD Sep 21, 2017 11:59
[2017-09-21] MEDS: ACETAMINOPHEN/HYDROcodone 325 MG/5 MG TAB PO PRN (13:48)
[2017-09-21 14:48] VITALS: RESP 18
--- NOTE | 2017-09-21 18:03 | HHI.DS ---
Discharge Summary Admission Date Sep 17, 2017 at 18:25 Discharge Date: Sep 21, 2017 Admitting Diagnosis Pelvic fracture (1) Fracture of multiple pubic rami ICD Code: S32.599A - Other specified fracture of unspecified pubis, initial encounter for closed fracture Procedures None Brief History - From Admission 72-year-old female reports that she was "partying with neighbors" last night when she fell backwards onto a concrete driveway onto her buttock and back. She denies any head trauma or loss of consciousness. Denies any other injuries. She reports she is unable to ambulate secondary to pelvic pain. The patient drinks approximately 10 shots of alcohol daily. She denies any chest pain or shortness of breath. No abdominal pain. No nausea/vomiting/diarrhea. No lateralizing signs/symptoms. No fever/chills CBC/BMP: 09/18/17 0453 09/18/17 0453 Imaging Hip and Pelvis X-Ray 09/17/17 0000 Signed Impressions: CONCLUSION: Fracturing of the left superior and inferior pubic rami. There is also fracture in the medial right pubic bone. Hip X-Ray 09/17/17 0000 Signed Impressions: CONCLUSION: Fracturing of the medial right pubic bone. Elbow X-Ray 09/17/17 0000 Signed Impressions: CONCLUSION: Negative left elbow series. Hospital Course 72 YOWF with history of EtOH abuse admitted on 09/17 after falling while intoxicated and sustaining a pelvic fracture. XR demonstrated L inferior and superior pubic rami and R medial pubic fractures. Orthopedic surgery consulted and she was managed conservatively with pain control and PT. She was discharged to rehab in stable condition on 09/21 once her insurance authorized the SNF. Pt Condition on Discharge: Stable Discharge Disposition: Discharge to SNF Discharge Time: <= 30 minutes Discharge Instructions DIET: Follow Instructions for: As Tolerated, No Restrictions Activities you can perform: See Additionl Instruction Other Activity Instructions: per ortho Follow up Referrals: Orthopedics - 10 Days with Arun Matute MD PCP Follow-up - 1 Week New Medications: Hydrocodone/Acetaminophen (Hydrocodone-Acetamin 5-325 mg) 5 Mg-325 Mg Tablet 1 TAB PO Q6H PRN for pain, #60 TAB Continued Medications: Multiple Vitamin (Multivitamin) 1 Tab Tab 1 TAB PO DAILY Zoe Turner MD Sep 21, 2017 18:03
== END 2017-09-21 17:18 ==
LOC: NEPD 15:06 → NEDA 18:25 → NEPFCDU 20:53
PROVIDERS: ADMIT Family Medicine; ATTEND Family Medicine
DX: M25.551 Pain in right hip (principal); M25.552 Pain in left hip; W18.39XA Other fall on same level, initial encounter; S70.12XA Contusion of left thigh, initial encounter; S50.02XA Contusion of left elbow, initial encounter; S32.810A Multiple fractures of pelvis with stable disruption of pelvic ring, initial encounter for closed fracture; F10.10 Alcohol abuse, uncomplicated
CPT/HCPCS: 73080; 73502; 80048; 85025; 85610; 85730; 96361; 96372; 96374; 96376; 97110; 97163; 99285; G0378; G8987; G8988; J1644; J2270; J7030